=== PATIENT | male | born 1995 | race Asian ===

== ENCOUNTER 2024-10-02 14:42 | Emergency (ER) | payer BC, SELFPAY ==
--- NOTE | ~2024-10-02 | XR_ITS ---
EXAMINATION: XR chest 2V DATE: 10/02/2024 15:07 INDICATION: Cough and fever post influenza TECHNIQUE: PA and lateral views of the chest were obtained. COMPARISON: None FINDINGS: The lungs are clear with no focal airspace opacities, pulmonary edema, pleural effusion or pneumothor ax. The cardiomediastinal silhouette is normal. Visualized bones and soft tissues are unremarkable. IMPRESSION: 1. Normal chest radiograph. Reviewed, dictated and finalized at location A. TECHNICIAN IMPRESSION: 1. Normal chest radiograph.
--- NOTE | 2024-10-02 14:43 | ED.URI ---
HPI - URI/Sore Throat General Chief Complaint: Upper Respiratory Infection Stated Complaint: COUGH Source: patient and RN notes reviewed Mode of arrival: ambulatory Limitations: no limitations History of Present Illness HPI Narrative: Patient is a 29-year-old male who presents to the [facility] with ongoing cough. Patient states that he was diagnosed with influenza approximately 2 weeks ago. He states that he had a cough, body aches, chills, when he was diagnosed with influenza. He also had a fever. States that all of his symptoms have resolved other than the cough. He reports a frequent productive cough with yellow/green sputum. Denies chest pain or shortness of breath. Denies recent fever. His respirations are unlabored. Related Data Allergies Allergy/AdvReac Type Severity Reaction Status Date / Time peanut Allergy Intermediate THROAT Verified 10/02/24 14:55 CLOSE UP sulfamethoxazole (From Allergy Intermediate Nausea Verified 10/02/24 14:55 Bactrim) trimethoprim (From Bactrim) Allergy Intermediate Nausea Verified 10/02/24 14:55 Review of Systems Review of Systems: CONSTITUTIONAL: Denies fever, chills, or sweats. EYES: Denies visual changes, redness, or discharge. ENT: Denies otalgia and sore throat CARDIOVASCULAR: Denies chest pain, palpitations, or edema. RESPIRATORY: Reports cough but denies dyspnea. GASTROINTESTINAL: Denies abdominal pain, nausea, vomiting, or diarrhea. GENITOURINARY: Denies dysuria or hematuria. SKIN: Denies rash or itching. MUSCULOSKELETAL: Denies back pain, joint pain, or myalgia. NEUROLOGIC: Denies headache, numbness, or weakness. Pertinent positives per HPI. PMFSH Social History Social History Smoking status: Never smoker Second hand tobacco smoke exposure: No Alcohol intake: never Substance use: never Substance use type: does not use Lack of Transportation: No Lack of Food: Never True Current Housing: I Have Housing Concerned About Future Housing: No Difficulty Paying Gas/Electric Bills: No Difficulty Paying for Meds: No Currently Unemployed: No Comments At the time of my signature, I reviewed and agree with the nursing past medical, surgical, social, and family history. There is no relevant family history pertinent to the patient complaint. Exam Narrative: GENERAL: This is a well-nourished, well-developed patient, in no apparent distress. HEAD: normocephalic, atraumatic. EYES: Sclera clear/white. Vision is grossly intact. EARS: External ears normal, auditory canals clear and without drainage, TMs normal without perforation. Hearing grossly intact. NOSE: External nose normal with no obvious nasal discharge, nares without redness, no rhinorrhea. THROAT: Mucous membranes moist, posterior pharynx clear. NECK: Neck supple, non-tender without lymphadenopathy, masses or thyromegaly. CARDIOVASCULAR: Regular rate and rhythm without murmurs, gallops, or rubs. RESPIRATORY: Clear to auscultation. Breath sounds equal bilaterally. No wheezes, rales, or rhonchi. GASTROINTESTINAL: Abdomen soft, non-tender, nondistended. Bowel sounds are active. No hepato-splenomegaly, or palpable masses. No guarding. SKIN: warm, intact with no suspicious lesions or rash, good texture and turgor. NEURO: awake, alert, and oriented to person, place and time. There were no obvious focal neurologic abnormalities. Course Course Level of Care: Express Care Visit Vital Signs Vital signs: Vital Signs Temperature 98.1 F 10/02/24 14:53 Pulse Rate 86 10/02/24 14:53 Respiratory Rate 16 10/02/24 14:53 Blood Pressure 122/70 10/02/24 14:53 Pulse Oximetry 100 10/02/24 14:53 Temperature 98.1 F 10/02/24 14:53 Pulse Rate 86 10/02/24 14:53 Respiratory Rate 16 10/02/24 14:53 Blood Pressure 122/70 10/02/24 14:53 Pulse Oximetry 100 10/02/24 14:53 Reviewed MDM - URI/Sore Throat MDM Narrative Medical decision making narrative: Take steroids as directed. May use the inhaler every 4-6 hours as needed for coughing. Increase fluids at home. Avoid any and all smoke. May use a humidifier in the bedroom. Increase your Vitamin C. Follow-up with personal physician in 2-5 days. Differential Diagnosis Differential diagnosis: Likely upper respiratory infection, viral infection, bronchitis and other (pneumonia) Imaging Data Attestation: I personally reviewed and interpreted this imaging study as follows: Radiologist's impression: Close Chest X-Ray (Signed) Oscar Grant - 10/02/24 Launch?[facility] [place] [address] [place] [address] XRay Report Signed Patient: Solo Villalobos : 1995 MR#: [id number] Age: 29 Acct:[id number] Loc: [facility] ADM Date: 10/02/24Attending Dr: Ordering Physician: Elzbieta Rosales APRN Date of Service: 10/02/24 Procedure(s): XR chest 2V Accession Number(s): [id number] cc: Elzbieta Rosales APRN; Carl Dye MD~ EXAMINATION: XR chest 2V DATE: 10/02/2024 15:07 INDICATION: Cough and fever post influenza TECHNIQUE: PA and lateral views of the chest were obtained. COMPARISON: None FINDINGS: The lungs are clear with no focal airspace opacities, pulmonary edema, pleural effusion or pneumothorax. The cardiomediastinal silhouette is normal. Visualized bones and soft tissues are unremarkable. IMPRESSION: 1. Normal chest radiograph. Reviewed, dictated and finalized at location A. [facility] Please be advised this is a medical document. It is intended for [id number] communication. It is written in medical language and may contain unfamiliar abbreviations or verbiage. Medical documents are intended to carry relevant information, facts as evident, and the clinical opinion of the practitioner at the time of the encounter. This report may have been done utilizing a voice recognition system. Attempts have been made to correct errors. However, there may be uncorrected grammatical, spelling, and recognition errors present. The file time of this note does not necessarily represent the time of service. Dictated By: Oscar Grant MD 10/02/24 1507 Signed By: <Electronically signed by Oscar Grant MD in OV> 10/02/24 1508 Critical Care Time Critical Care Time Critical Care Time: No Discharge Plan Discharge Clinical Impression: Acute viral bronchitis Patient Disposition: Home, Self-Care Condition: Stable Instructions: Antibiotic Form, Acute Bronchitis (ED) Additional Instructions: Take steroids as directed. May use the inhaler every 4-6 hours as needed for coughing. Increase fluids at home. Avoid any and all smoke. May use a humidifier in the bedroom. Increase your Vitamin C. Follow-up with personal physician in 2-5 days. Patient Language: Sami Prescriptions: New prednisone 50 mg tablet 50 mg PO DAILY 5 Days Qty: 5 0RF albuterol sulfate [Ventolin HFA] 90 mcg/actuation HFA aerosol inhaler 2 puff inhalation QID PRN (Reason: shortness of breath or wheezing) Qty: 6.7 0RF No Action epinephrine [EpiPen 2-Mauro] 0.3 mg/0.3 mL auto-injector 0.3 mg IM ONCE PRN (Reason: anaphylaxis) Qty: 2 0RF Rx Instructions: as a single dose; may repeat once Saline Nasal 0.65 % aerosol,spray 1 spray intranasal QID PRN (Reason: nasal congestion) Qty: 44 0RF Follow-up/Referrals: UNKNOWN,DOCTOR [Non-Staff] - Time of Disposition: 15:14
[2024-10-02 14:53] VITALS: BP 122/70; PULSE 86; RESP 16; TEMP 36.7; O2SAT 100
== END 2024-10-02 15:15 | disposition home or self-care (01) ==
PROVIDERS: Emergency Provider Nurse Practitioner; PCP Family Medicine
DX: J20.8 Acute bronchitis due to other specified organisms (principal)
CPT/HCPCS: 71046; 99213; G0463